=== PATIENT | male | born 1965 | race Caucasian/White ===

== ENCOUNTER 2019-10-12 10:18 | Emergency (ER) | payer MEDICAID ==
[~2019-10-12] VITALS: Ht 162.6 cm; Wt 74.8 kg
--- NOTE | 2019-10-12 10:21 | NUR ---
Patient ambulated to bed 3 with caregivers. RN evaluating patient at bedside.
[2019-10-12 10:25] VITALS: BP 149/78
[2019-10-12] MEDS ORDERED: MORPHINE SULFATE 4 MG/ML SYR IM ONE (10:25)
--- NOTE | 2019-10-12 10:25 | NUR ---
ERMD AT BEDSIDE
--- NOTE | 2019-10-12 10:27 | NUR ---
54 Y/O M C/C PAIN ON LUE DUE TO FALL AT WORK X TODAY. PER PT DENIES LOC. ROM LIMITED/CMS INTACT. PAIN 10/10, POKING SENSATION, L WRIST AREA. HAD NO TX PRIOR TO COMING TO HOSPITAL. PT NKA. NO HX. NO RX. NO N/V/D. SIDE RAIL X1.
--- NOTE | 2019-10-12 10:32 | NUR ---
XRAY AT BEDSIDE
[2019-10-12] MEDS ORDERED: BACITRACIN OINT 500 UNITS/GM PKT TP ONE (11:11)
--- NOTE | 2019-10-12 11:32 | NUR ---
PLACED A POSTERIOR ARM SPLINT ON PT'S LEFT ARM AND WRAP WITH 3" NICHOLE WRAP, CHECKED PMSC'S BEFORE AND AFTER PLACEMENT WITHOUT INCIDENT, PLACED PT IN SHOULDER IMMOBILIZER AFTER ARM SPLINT WAS DONE.
[2019-10-12 11:37] VITALS: BP 149/78
--- NOTE | 2019-10-12 11:37 | NUR ---
Patient discharged with v/s stable. Written and verbal after care instructions given and explained. Patient alert, oriented and verbalized understanding of instructions. Ambulatory with steady gait. All questions addressed prior to discharge. ID band removed. Patient advised to follow up with PMD. Rx of NORCO/MOTRIN given. Patient educated on indication of medication including possible reaction and side effects. Opportunity to ask questions provided and answered.
== END 2019-10-12 11:37 | disposition home or self-care (01) ==
LOC: MED 10:18
DX: S52.502A Unspecified fracture of the lower end of left radius, initial encounter for closed fracture (principal); W18.30XA Fall on same level, unspecified, initial encounter; Y93.89 Activity, other specified; Y92.89 Other specified places as the place of occurrence of the external cause; Y99.8 Other external cause status
CPT/HCPCS: 29105; 73110; 96372; 99283; J2270; Q0092